=== PATIENT | male | born 1995 | race Caucasian/White ===

== ENCOUNTER 2017-05-13 20:31 | Observation (INO) | payer BC ==
[~2017-05-13] VITALS: Ht 177.8 cm; Wt 70.0 kg
[2017-05-13 11:30] VITALS: O2SAT 100
[2017-05-13 20:32] VITALS: BP 109/70; PULSE 68; RESP 15; TEMP 98.7; O2SAT 98
[2017-05-13] MEDS ORDERED: MORPHINE SULFATE 4 MG/ML INJ IV PUSH ONE (21:30)
[2017-05-13] MEDS ORDERED: ONDANSETRON HCL 4 MG/2 ML VIAL IV PUSH ONE (21:30)
[2017-05-13] MEDS ORDERED: fentaNYL CITRATE 250 MCG/5 ML AMP IV PUSH ONE (21:30)
[2017-05-13] MEDS ORDERED: SODIUM CHLORIDE 0.9% FLUSH 10 ML FLUSH IV FLUSH PRN (21:30)
[2017-05-13] MEDS ORDERED: MIDAZOLAM HCL 5 MG/5 ML VIAL IV PUSH ONE (21:30)
--- NOTE | 2017-05-13 21:35 | PD ---
HPI Chief Complaint: Injury Time Seen by Provider: 21:19 Travel History International Travel<30 days: No Contact w/Intl Traveler<30days: No Traveled to known affect area: No History of Present Illness HPI Patient comes in complaining of left shoulder dislocation after falling off a skateboard shortly prior to arrival. Patient states EMS put him in a sling that did not seem to help. Pain is worse with palpation and trying to move his left shoulder. Patient states he is has done this previously. Patient has pain is aching like in nature without radiation. Denies any numbness or tingling. Denies hitting his head or loss consciousness. Patient has abrasion on his left knee states his tetanus shot is up-to-date. PFSH Past Medical History Musculoskeletal: Yes (shoulder dislocation) Social History Tobacco Use: No Substance Use: No Allergies-Medications (Allergen,Severity, Reaction): Coded Allergies: No Known Allergies (Verified Allergy, Unknown, 05/13/17) Reported Meds & Prescriptions Reported Meds & Active Scripts Active Hydrocodone-Acetaminophen 7.5-325 mg Tab 1 Tab PO Q4H PRN Review of Systems Except as stated in HPI: all other systems reviewed are Neg Physical Exam Narrative GENERAL: Well-developed, well nourished, in no acute distress, and non-ill appearing. SKIN: Focused skin assessment warm and dry. HEAD: Atraumatic. Normocephalic. EYES: Pupils equal and round. EOMI. No scleral icterus. No injection or drainage. ENT: No nasal bleeding or discharge. Mucous membranes pink and moist. NECK: Trachea midline. Supple. No nuclear rigidity. CARDIOVASCULAR: Radial pulses 2+, intact, and equal bilaterally. Capillary refill less than 2 seconds. RESPIRATORY: No accessory muscle use. No respiratory distress. MUSCULOSKELETAL:Obvious deformity left shoulder. No clubbing. No cyanosis. No edema. Decreased range of motion left shoulder secondary to pain. Sensation intact and equal over bilateral deltoids. Shoulder: Pulses equal BL distal to injury. Capillary refill less than 2 seconds distal to injury and equal BL. FROM distal to injury and equal BL. Strength distal to injury equal BL. NV intact distal to injury equal BL. Flexion and extension of thumb equal BL. Equal strength and movement with abduction/adductions of BL fingers. Chief Pilot strength equal BL. NEUROLOGICAL: Awake and alert. No obvious cranial nerve deficits. Motor grossly within normal limits. Normal speech. PSYCHIATRIC: Appropriate mood and affect; insight and judgment normal. Data Data Last Documented VS Vital Signs Date Time Temp Pulse Resp B/P (MAP) Pulse Ox O2 Delivery O2 Flow Rate FiO2 05/13/17 23:40 Room Air 05/13/17 23:07 73 16 139/85 (103) 100 05/13/17 20:32 98.7 05/13/17 11:30 3.00 Orders Orders Iv Access Insert/Monitor (05/13/17 21:24) Ecg Monitoring (05/13/17 21:24) Oximetry (05/13/17 21:24) Sodium Chloride 0.9% Flush (Ns Flush) (05/13/17 21:30) Morphine Inj (Morphine Inj) (05/13/17 21:30) Ondansetron Inj (Zofran Inj) (05/13/17 21:30) Midazolam Inj (Versed Inj) (05/13/17 21:30) Fentanyl Inj (Fentanyl Inj) (05/13/17 21:30) Sodium Chlor 0.9% 1000 Ml Inj (Ns 1000 M (05/13/17 21:45) Shoulder, Limited(2vws) (05/13/17 ) Splint Or Brace Apply/Monitor (05/13/17 21:44) Sling And Swathe (05/13/17 ) Fentanyl Inj (Fentanyl Inj) (05/13/17 23:09) Midazolam Inj (Versed Inj) (05/13/17 23:10) Midazolam Inj (Versed Inj) (05/13/17 23:44) Midazolam Inj (Versed Inj) (05/14/17 00:00) Admit Order (Ed Use Only) (05/14/17 00:11) MDM Medical Decision Making Medical Screen Exam Complete: Yes Emergency Medical Condition: Yes Differential Diagnosis Fracture, dislocation, contusion, sprain, other Narrative Course Patient was seen and examined. Initial radiological studies were ordered. Reduction of left shoulder was attempted without success. Shoulder would go back into place to 2-3 times but then immediately pop right back out. She then with the assistance of Dr. Perera. Please see his documentation for further details. Patient was signed out to Dr. Perera pending orthopedic consult. Please see his documentation for further details. Diagnosis Primary Impression: Dislocation of left shoulder joint Qualified Codes: S43.005A - Unspecified dislocation of left shoulder joint, initial encounter Scripts Hydrocodone-Acetaminophen (Hydrocodone-Acetaminophen) 7.5-325 mg Tab 1 TAB PO Q4H Y for PAIN, #60 TAB 0 Refills Prov: Neftali Ryan 05/14/17 Condition: Stable Roberto Quan May 13, 2017 21:35
[2017-05-13] MEDS ORDERED: SODIUM CHLOR 0.9% 1000 ML INJ 1,000 ML IV ONE (21:45)
--- NOTE | 2017-05-13 22:01 | RADRPT ---
EXAM DATE/TIME: 05/13/2017 21:37 [facility] COMPARISON: No previous studies available for comparison. INDICATIONS : Left shoulder pain; fell skateboarding tonight. MEDICAL HISTORY : None. SURGICAL HISTORY : None. ENCOUNTER: Initial ACUITY: 1 day PAIN SCORE: 10/10 LOCATION: Left shoulder. FINDINGS: Glenohumeral joint is anteriorly dislocated. There is a suspected fractures through the mid glenoid. CONCLUSION: Dislocated glenohumeral joint and suspected glenoid fracture. Mike Talavera MD on May 13, 2017 at 21:59 Board Certified Radiologist. This report was verified electronically.
[2017-05-13 22:28] VITALS: BP 139/85; PULSE 84; RESP 15; O2SAT 100
[2017-05-13 23:07] VITALS: BP 139/85; PULSE 73; RESP 16; O2SAT 100
[2017-05-13] MEDS ORDERED: fentaNYL CITRATE 250 MCG/5 ML AMP ONE (23:09)
[2017-05-13] MEDS ORDERED: MIDAZOLAM HCL 5 MG/ML VIAL (1 ML) ONE ×2 (23:10→23:44)
[2017-05-14] MEDS ORDERED: MIDAZOLAM HCL 5 MG/ML VIAL (1 ML) IV PUSH ONE
--- NOTE | 2017-05-14 00:11 | PD ---
Physical Exam Narrative GENERAL: SKIN: Warm and dry. HEAD: Atraumatic. Normocephalic. EYES: Pupils equal and round. No scleral icterus. No injection or drainage. ENT: No nasal bleeding or discharge. Mucous membranes pink and moist. NECK: Trachea midline. No JVD. CARDIOVASCULAR: Regular rate and rhythm. RESPIRATORY: No accessory muscle use. Clear to auscultation. Breath sounds equal bilaterally. GASTROINTESTINAL: Abdomen soft, non-tender, nondistended. Hepatic and splenic margins not palpable. MUSCULOSKELETAL: Extremities without clubbing, cyanosis, or edema. LEFT ANT DISLOCATION, GOOD NVI, STRONG PULSES, NEUROLOGICAL: Awake and alert. No obvious cranial nerve deficits. Motor grossly within normal limits. Five out of 5 muscle strength in the arms and legs. Normal speech. PSYCHIATRIC: Appropriate mood and affect; insight and judgment normal. Data Data Last Documented VS Vital Signs Date Time Temp Pulse Resp B/P (MAP) Pulse Ox O2 Delivery O2 Flow Rate FiO2 05/13/17 23:40 Room Air 05/13/17 23:07 73 16 139/85 (103) 100 05/13/17 20:32 98.7 Orders Orders Iv Access Insert/Monitor (05/13/17 21:24) Ecg Monitoring (05/13/17 21:24) Oximetry (05/13/17 21:24) Sodium Chloride 0.9% Flush (Ns Flush) (05/13/17 21:30) Morphine Inj (Morphine Inj) (05/13/17 21:30) Ondansetron Inj (Zofran Inj) (05/13/17 21:30) Midazolam Inj (Versed Inj) (05/13/17 21:30) Fentanyl Inj (Fentanyl Inj) (05/13/17 21:30) Sodium Chlor 0.9% 1000 Ml Inj (Ns 1000 M (05/13/17 21:45) Shoulder, Limited(2vws) (05/13/17 ) Splint Or Brace Apply/Monitor (05/13/17 21:44) Sling And Swathe (05/13/17 ) Fentanyl Inj (Fentanyl Inj) (05/13/17 23:09) Midazolam Inj (Versed Inj) (05/13/17 23:10) Midazolam Inj (Versed Inj) (05/13/17 23:44) Midazolam Inj (Versed Inj) (05/14/17 00:00) [facility] Medical Record Reviewed: Yes Supervised Visit with NELSON: No Narrative Course DESPITE GOOD SEDATION UNABLE TO REDUCE LEFT SHOULDER. Procedures Procedure Narrative The patient was placed on a cardiac rehab nurse and pulse oximetry. An ambu bag and suction was immediately available at bedside. The patient was monitored by the nurse. Oxygen saturation, heart rate and blood pressure were monitored. Procedural sedation was acheived using [FENTANYL 50MCG, VERSED 10MG TOTAL]. The patient was observed until awake and alert. Procedural Sedation time in attendance was [45] minutes. Physician Communication Physician Communication UNSUCCESSFUL ATTEMPTS INCLUDING WITH WORSTED WINDER, ALL 3 TIMES FELT IT REDUCED BUT SOON TENSION WAS RELEASED IT WOULD DISLOCATE AGAIN. DR DEVLIN CONSULTED AND WILL REDUCE IN AM, IN OR Diagnosis Primary Impression: Dislocation of left shoulder joint Qualified Codes: S43.005A - Unspecified dislocation of left shoulder joint, initial encounter Admitting Information Admitting Physician Requests: Observation Pavan Perera MD May 14, 2017 00:11
[2017-05-14] MEDS ORDERED: SODIUM CHLOR 0.9% 1000 ML INJ 1,000 ML IV SCH (00:15)
[2017-05-14 00:45] VITALS: BP 111/59; PULSE 84; RESP 14; O2SAT 100
[2017-05-14 01:15] VITALS: BP 136/79; PULSE 88; RESP 17; TEMP 97.2; O2SAT 98
[2017-05-14 04:00] VITALS: BP 134/80; PULSE 90; RESP 17; TEMP 97.5; O2SAT 97
[2017-05-14] MEDS ORDERED: LACTATED RINGER'S 1000 ML IV PRN (04:30)
[2017-05-14] MEDS ORDERED: METOPROLOL TARTRATE 25 MG TAB PO PRN (04:30)
[2017-05-14] MEDS ORDERED: INSULIN HUMAN REGULAR 1,000 UNITS/10 ML VIAL SQ PRN (04:30)
[2017-05-14] MEDS ORDERED: SODIUM CHLORID 0.9% 500 ML IV PRN (04:30)
[2017-05-14] MEDS ORDERED: POVIDONE IODINE 5% (ANTISEPSIS KIT) 4 APPLICATIONS EACH NARE PRN (04:30)
[2017-05-14] MEDS ORDERED: CHLORHEXIDINE GLUCONATE 2 % 1 PACK (2 CLOTHS) TOPICAL PRN (04:30)
[2017-05-14] MEDS ORDERED: HYDR-3580 PO (06:24)
[2017-05-14] MEDS ORDERED: ACETAMINOPHEN 1000 MG/100 ML 0 ML IV ONE (06:58)
[2017-05-14] MEDS ORDERED: SUGAMMADEX SODIUM 200 MG/2 ML VIAL IV PUSH ONE ×2 (07:08)
[2017-05-14] MEDS ORDERED: FAMOTIDINE 20 MG/2 ML VIAL ONE (07:18)
[2017-05-14] MEDS ORDERED: MIDAZOLAM HCL 2 MG/2 ML VIAL ONE (07:18)
[2017-05-14 07:22] LABS: AUTOMATED NEUTROPHIL # 6.6 TH/MM3 (1.8-7.7); BASOPHIL % 0.2 % (0.0-2.0); EOSINOPHIL # 0.1 TH/MM3 (0-0.4); EOSINOPHIL % 0.5 % (0.0-4.0); HEMATOCRIT 41.5 % (39.0-51.0); HEMO FLAGS DIFF FINAL; LYMPH % 28.7 % (9.0-44.0); LYMPHOCYTE # 3.1 TH/MM3 (1.0-4.8); MEAN CELL VOLUME 89.1 FL (80.0-100.0); MEAN CORPUSCULAR HEMOGLOBIN 29.8 PG (27.0-34.0); MEAN CORPUSCULAR HGB CONC 33.4 % (32.0-36.0); MONO % 10.5 % (0.0-8.0); NEUT % 60.1 % (16.0-70.0); PLATELET COUNT 199 TH/MM3 (150-450); RED BLOOD COUNT 4.66 MIL/MM3 (4.50-5.90); WHITE BLOOD COUNT 10.9 TH/MM3 (4.0-11.0)
[2017-05-14 07:40] LABS: APTT (PATIENT) 26.3 SEC (24.3-30.1); PROTHROMBIN TIME - PATIENT 10.8 SEC (9.8-11.6)
[2017-05-14 07:45] LABS: BICARBONATE 23.8 MEQ/L (21.0-32.0); POTASSIUM 3.6 MEQ/L (3.5-5.1)
--- NOTE | 2017-05-14 08:14 | PD.OP ---
cc: Serg Lai MD Operative Report Date of Surgery: May 14, 2017 Preoperative Diagnosis: Left shoulder dislocation Postoperative Diagnosis: Procedure: Closed reduction left shoulder with manipulation under anesthesia Anesthesia: Gen. Surgeon: Serg Lai Dry Cure Worker(s): Valentin Presley PA-C Operation and Findings: Jamarcus is a 21-year-old male who had a fall resulting a left shoulder dislocation yesterday. He had attempted closed reduction in the emergency room. Reduction attempts were unsuccessful. Informed consent was obtained preoperatively and Op Site was marked. He is brought to operating. His given IV sedation and general anesthesia. Timeout procedure was performed. Procedure began with manipulation of the elbow. Traction was applied. Counter traction was also applied. The shoulder was gently manipulated. The shoulder reduced well. Fluoroscopy was used to confirm anatomic reduction of the shoulder. The shoulder was placed through gentle range of motion and found to be relatively stable. Patient was placed into a sling and swath. He was awakened and transferred to recovery room in stable condition. Serg Lai MD May 14, 2017 08:14
[2017-05-14] MEDS ORDERED: SODIUM CHLORIDE 0.9% FLUSH 10 ML FLUSH IV FLUSH PRN (08:15)
[2017-05-14] MEDS ORDERED: ACETAMINOPHEN/HYDROcodone 325 MG/7.5 MG TAB PO PRN (08:15)
[2017-05-14 08:29] VITALS: TEMP 97.8
[2017-05-14] MEDS ORDERED: DO NOT ADM ANY ANTICOAGULANT DRUGS PRN (08:29)
[2017-05-14 08:59] VITALS: BP 112/59; PULSE 88; RESP 14; O2SAT 96
[2017-05-14] MEDS ORDERED: SODIUM CHLORIDE 0.9% FLUSH 10 ML FLUSH IV FLUSH SCH (09:00)
--- NOTE | 2017-05-14 09:01 | MB ---
cc: YAYAKURTIS DATE OF CONSULTATION: 05/14/2017 REASON FOR CONSULTATION Left shoulder dislocation. HISTORY OF PRESENT ILLNESS Jamaal is a 21-year-old male who is a college student. He was riding a skateboard. He fell and landed on his outstretched left arm. He had immediate left shoulder pain. He presented to the emergency room where x-rays revealed a left shoulder dislocation. He denies hitting his head. He had no loss of consciousness. The shoulder pain is worse with movement. He states that this is the fourth time he has dislocated his shoulder. He has previously had surgical repair of his labrum arthroscopically. He was doing well until this fall. PAST MEDICAL HISTORY ILLNESSES None. ALLERGIES None. MEDICATIONS None. SURGERIES Left shoulder arthroscopy. SOCIAL HISTORY The patient is a college student. He denies alcohol, tobacco or drug use. FAMILY HISTORY Noncontributory. REVIEW OF SYSTEMS The patient denies headache, visual changes, neck pain, chest pain, shortness of breath, abdominal pain, fever, chills, nausea, vomiting, recent weight loss, or numbness or tingling of extremities. He complains of left shoulder pain. The pain is worse with movement. PHYSICAL EXAMINATION GENERAL: The patient is a thin 21-year-old male in no acute distress. He is awake and alert. He is alert and oriented x3. He appears well-developed, well-nourished. VITAL SIGNS: Temperature 97.5, pulse 90, respirations 17, blood pressure 134/80. O2 sat is 97% on three liters nasal cannula. HEENT: Head is normocephalic. Pupils are equal. NECK: Soft, nontender. Trachea is midline. ABDOMEN: Soft, nontender, nondistended. EXTREMITIES: Examination of left shoulder reveals obvious deformity. The left humerus appears to be anterior to the glenoid. He has pain with any shoulder motion. He has minimal pain with elbow, wrist or finger motion. Sensation is intact in all fingers. Skin is intact. Radial pulse is palpable. Examination of right arm reveals no pain with shoulder, elbow or wrist motion. He has intact sensation in all fingers. He has good capillary refill in all fingers. Skin is intact. Examination of lower extremities reveals no pain with hip, knee or ankle motion. Skin is intact. Dorsalis pedis pulses are palpable. X-RAYS X-rays of the left shoulder were reviewed. The patient has post-surgical changes from previous labral repair. He also has an anterior dislocation of his shoulder. IMPRESSION Dislocated left shoulder. PLAN The treatment options were discussed with the patient. At this point I would recommend attempt at closed reduction left shoulder. If the shoulder does not reduce he may need open reduction and possible soft tissue repair. The risks of surgery include bleeding, infection, injuries to arteries, nerves and blood vessels, recurrent dislocation, fracture of shoulder as well as medical complications associated with anesthesia. All questions were answered. I will plan on surgery today. A mid-level provider in my office, nurse practitioner or PA, may see this patient on a follow-up basis and continue to implement the objective of this plan including: Starting or adjusting medications, injections of muscle, tendon, bursa or joints, cast application, orthotic or brace application, physical therapy, further radiographic studies including x-ray, MRI, CT, ultrasounds or bone scan, vascular studies, neurologic studies, or other specialist consultations, and proceeding with surgical management as appropriate. MD MAYRA Randle/ZAINAB /8:16 AM /8:38 AM
[2017-05-14] MEDS ORDERED: MIDAZOLAM HCL 2 MG/2 ML VIAL IV ONE (12:00)
[2017-05-14] MEDS ORDERED: PHENYLEPH/NS 1000 MCG/10 ML SYR IV ONE (12:00)
[2017-05-14] MEDS ORDERED: ONDANSETRON HCL 4 MG/2 ML VIAL IV PUSH ONE (12:00)
[2017-05-14] MEDS ORDERED: ePHEDrine/NS 25 MG/5 ML SYR IV ONE (12:00)
[2017-05-14] MEDS ORDERED: LIDOCAINE HCL 1% PF 5 ML AMPULE OTHER ONE (12:00)
[2017-05-14] MEDS ORDERED: DEXAMETHASONE SOD PHOS 4 MG/ML VIAL IV ONE (12:00)
[2017-05-14] MEDS ORDERED: ROCURONIUM INJ 50 MG/5 ML SYRINGE IV PUSH ONE (12:00)
[2017-05-14] MEDS ORDERED: PROPOFOL 200 MG/20 ML AMP IV ONE (12:00)
--- NOTE | 2017-05-14 13:36 | PD.ORT.PN ---
Subjective Subjective Remarks POD 0 s/p closed reduction left shoulder Objective Vitals Vital Signs Date Time Temp Pulse Resp B/P (MAP) Pulse Ox O2 Delivery O2 Flow Rate FiO2 05/14/17 08:59 88 14 112/59 (76) 96 Room Air 05/14/17 08:44 99 14 104/56 (72) 99 Nasal Cannula 2 05/14/17 08:29 97.8 111 16 102/64 (77) 100 Nasal Cannula 2 05/14/17 04:00 97.5 90 17 134/80 (98) 97 05/14/17 01:15 97.2 88 17 136/79 (98) 98 05/14/17 01:00 05/14/17 00:45 84 14 111/59 (76) 100 Nasal Cannula 3.00 05/13/17 23:40 Room Air 05/13/17 23:07 73 16 139/85 (103) 100 Room Air 05/13/17 22:28 84 15 139/85 (103) 100 Room Air 05/13/17 20:32 98.7 68 15 109/70 (83) 98 Room Air I/O 05/13/17 05/13/17 05/13/17 05/14/17 05/14/17 05/14/17 07:00 15:00 23:00 07:00 15:00 23:00 Intake Total 0 ml Balance 0 ml Intake Oral 0 ml # Voids 1 # Bowel Movements 0 Result Diagram: 05/14/17 0643 05/14/17 0643 Other Results Laboratory Tests Test 05/14/17 06:43 Prothromb Time International Ratio 1.0 RATIO Prothrombin Time 10.8 SEC (9.8-11.6) Objective Remarks LUE: +sling/swathe. +cap refill Assessment & Plan Assessment and Plan 1) Left Shoulder dislocation s/p closed reduction - POD 0 -NWB -sling/swathe at all times -ortho clear for DC home -f/u with Joseph or MELLISSA in 10-14 days Neftali Ryan May 14, 2017 13:36
--- NOTE | 2017-05-14 13:39 | HHI.DS ---
Discharge Summary Admission Date May 14, 2017 at 00:12 Discharge Date: May 14, 2017 Admitting Diagnosis Left Shoulder Dislocation Diagnosis: (1) Dislocation of left shoulder joint Diagnosis: Principal ICD Codes: S43.005A - Unspecified dislocation of left shoulder joint, initial encounter Status: Acute Procedures Closed Reduction Left Shoulder CBC/BMP: 05/14/17 0643 05/14/17 0643 Significant Findings Laboratory Tests Test 05/14/17 06:43 Monocytes (%) (Auto) 10.5 % (0.0-8.0) Monocytes # (Auto) 1.2 TH/MM3 (0-0.9) Calcium Level 8.1 MG/DL (8.5-10.1) Chloride Level 109 MEQ/L (98-107) PE at Discharge LUE: +sling/swathe. +cap refill Hospital Course Patient admitted from ED on 05/13/17 for recurrent left shoulder dislocation. Taken to OR for closed reduction. Performed successfully. Stable post op. Clear for discharge home. will remain NWB and maintain sling/swathe at all times. follow up with Joseph or MELLISSA in 2 weeks Pt Condition on Discharge: Good Discharge Disposition: Discharge Home Discharge Instructions Diet Instructions: As Tolerated, No Restrictions Activities You Can Perform: See Additionl Instruction Additional Activity Instruc.: Sling and swath at all times. Remove only for shower Follow up Referrals: Orthopedics - 2 Weeks @ [facility] with Serg Ruiz MD New Medications: Hydrocodone-Acetaminophen (Hydrocodone-Acetaminophen) 7.5-325 mg Tab 1 TAB PO Q4H PRN for PAIN, #60 TAB 0 Refills Neftali Ryan May 14, 2017 13:39
--- NOTE | 2017-05-14 15:29 | RADRPT ---
EXAM DATE/TIME: 05/14/2017 08:04 [facility] COMPARISON: SHOULDER LEFT LTD (2VWS), May 13, 2017, 21:37. INDICATIONS : Left shoulder closed reduction internal fixation. MEDICAL HISTORY : None. SURGICAL HISTORY : None. ENCOUNTER: Initial ACUITY: 1 day PAIN SCORE: Non-responsive. LOCATION: Left shoulder FINDINGS: 2 fluoroscopic old images from left shoulder reduction. There is now anatomic alignment of the glenoh umeral joint. No definitive acute bony fracture. Lucency demonstrated in the glenoid on the radiograp hs is not demonstrated on this exam. CONCLUSION: 1. Anatomic alignment status post left shoulder reduction Curt Zhang MD on May 14, 2017 at 15:26 Board Certified Radiologist. This report was verified electronically.
== END 2017-05-14 14:10 | disposition home or self-care (01) ==
LOC: NEPE 20:31 → NEDA 05-14 00:12 → N06A 05-14 01:11
PROVIDERS: ADMIT Orthopaedic Surgery; ATTEND Orthopaedic Surgery
DX: M24.412 Recurrent dislocation, left shoulder (principal); V00.131A Fall from skateboard, initial encounter; Y93.51 Activity, roller skating (inline) and skateboarding
CPT/HCPCS: 01620; 23650; 23655; 73030; 76000; 80048; 85025; 85610; 85730; 96361; 96374; 96375; 99152; 99153; 99285; G0378; J1100; J2250; J2270; J2370; J2405; J3010; J7030; J0131

== ENCOUNTER 2017-07-22 22:34 | Emergency (ER) | payer BC ==
[~2017-07-22] VITALS: Ht 180.3 cm; Wt 72.0 kg
[~2017-07-22 22:34] MED LIST: HYDR-3580 PO
[2017-07-22 22:35] VITALS: BP 122/67; PULSE 67; RESP 18; TEMP 98.8; O2SAT 99
[2017-07-22 23:01] VITALS: BP 123/65; PULSE 69; RESP 16; O2SAT 99
[2017-07-22 23:02] VITALS: BP 123/65; PULSE 69; RESP 16; TEMP 98.5; O2SAT 99
--- NOTE | 2017-07-22 23:10 | PD ---
HPI Chief Complaint: Injury Time Seen by Provider: 23:02 Travel History International Travel<30 days: No Contact w/Intl Traveler<30days: No Traveled to known affect area: No History of Present Illness HPI 21yo M with PMH of recurrent left shoulder dislocation presents to the ED with c /o left shoulder dislocation. Pt said he slip and fell and dislocated his left shoulder again. Denies any other injuries. Denies any fever, chest pain, sob, n/v, abdominal pain, focal weakness or numbness. Pt was seen on 05/13/17 for left shoulder dislocation and had to get his shoulder reduced in the OR after unsuccessful reduction using procedural sedation. PFSH Past Medical History Cardiovascular Problems: No Genitourinary: No Musculoskeletal: Yes (shoulder dislocation) Neurologic: No Psychiatric: No Reproductive: No Respiratory: No Social History Tobacco Use: No Substance Use: No Allergies-Medications (Allergen,Severity, Reaction): Coded Allergies: No Known Allergies (Verified Allergy, Unknown, 05/13/17) Reported Meds & Prescriptions Reported Meds & Active Scripts Active Hydrocodone-Acetaminophen 7.5-325 mg Tab 1 Tab PO Q4H PRN Review of Systems Except as stated in HPI: all other systems reviewed are Neg Physical Exam Narrative GENERAL: 21yo M in mild distress. SKIN: Focused skin assessment warm/dry. HEAD: Atraumatic. Normocephalic. EYES: Pupils equal and round. No scleral icterus. No injection or drainage. CARDIOVASCULAR: Regular rate and rhythm. No murmur appreciated. RESPIRATORY: No accessory muscle use. Clear to auscultation. Breath sounds equal bilaterally. GASTROINTESTINAL: Abdomen soft, non-tender, nondistended. MUSCULOSKELETAL: Left shoulder: Glenoid is anterior inferior to glenohumeral joint. Deltoid sensation intact. Distal pulses intact. NEUROLOGICAL: Awake and alert. No obvious cranial nerve deficits. Motor grossly within normal limits. Normal speech. PSYCHIATRIC: Appropriate mood and affect; insight and judgment normal. Data Data Last Documented VS Vital Signs Date Time Temp Pulse Resp B/P (MAP) Pulse Ox O2 Delivery O2 Flow Rate FiO2 07/22/17 23:45 99 Nasal Cannula 3.00 07/22/17 23:02 98.5 69 16 123/65 (84) Orders Orders Morphine Inj (Morphine Inj) (07/22/17 23:15) Propofol 500 Mg/50 Ml Inj (Diprivan 500 (07/22/17 23:15) Shoulder, Limited(2vws) (07/22/17 23:26) Shoulder, Limited(2vws) (07/23/17 ) Ct Shoulder W/O Contrast (07/23/17 ) MDM Medical Decision Making Medical Screen Exam Complete: Yes Emergency Medical Condition: Yes Differential Diagnosis Recurrent left shoulder dislocation Narrative Course 21yo M here with recurrent left shoulder dislocation after fall. No other complaints. Neurovascular intact. Pt's left shoulder dislocated on clinical exam so reduced with procedural sedation. Xray left shoulder showed anterior inferior dislocation of the humerus with respect to the glenoid. A comminuted glenoid fracture is suspected. Post reduction xray showed interval reduction of shoulder dislocation. Glenoid fracture was suspected on initial images, obscured on current study. CT exam of shoulder is suggested. Pt is fully awake and I discussed with him. Agree to CT shoulder. Procedures Procedure Narrative After the risks and benefits were discussed the following procedure was performed: MODERATE SEDATION: The patient was placed on a cardiac technologist and pulse oximetry. An ambu bag and suction was immediately available at bedside. The patient was monitored by the nurse. Oxygen saturation , heart rate and blood pressure were monitored. Procedural sedation was acheived using 200mcg of propofol. The patient was observed until awake and alert. Procedural Sedation time in attendance was 30 minutes. Diagnosis Primary Impression: Shoulder dislocation Qualified Codes: S43.005A - Unspecified dislocation of left shoulder joint, initial encounter Referrals: Elias Hemphill MD call for appointment Patient Instructions: General Instructions Departure Forms: Tests/Procedures Med/Other Pt SpecificInfo: No Change to Meds Adele Ravi DO Jul 22, 2017 23:10
[2017-07-22] MEDS ORDERED: PROPOFOL 500 MG/50 ML BTL IV ONE (23:15)
[2017-07-22] MEDS ORDERED: MORPHINE SULFATE 4 MG/ML INJ IV PUSH ONE (23:15)
[2017-07-22 23:45] VITALS: O2SAT 100; O2SAT 99
--- NOTE | 2017-07-22 23:45 | RADRPT ---
EXAM DATE/TIME: 07/22/2017 23:24 [facility] COMPARISON: No previous studies available for comparison. INDICATIONS : Patient fell onto left shoulder MEDICAL HISTORY : None. History of Dislocation of left shoulder SURGICAL HISTORY : None. ENCOUNTER: Initial ACUITY: 1 day PAIN SCORE: 6/10 LOCATION: Left Shoulder FINDINGS: There is anterior inferior dislocation of the humerus with respect to the glenoid. A comminuted gleno id fracture is suspected. CONCLUSION: Shoulder dislocation with possible glenoid fracture. Rolan Griffin MD on July 22, 2017 at 23:43 Board Certified Radiologist. This report was verified electronically.
--- NOTE | 2017-07-23 00:21 | RADRPT ---
EXAM DATE/TIME: 07/23/2017 00:08 [facility] COMPARISON: SHOULDER LEFT LTD (2VWS), July 22, 2017, 23:24. INDICATIONS : Post Reduction of Left shoulder MEDICAL HISTORY : None. SURGICAL HISTORY : None. ENCOUNTER: Subsequent ACUITY: 1 day PAIN SCORE: 7/10 LOCATION: Left Shoulder FINDINGS: Interval reduction of the shoulder dislocation. No well defined fracture fragments. There were findin gs suspect for a glenoid fracture on the previous study which is obscured on the current study. CONCLUSION: Interval reduction of shoulder dislocation. Glenoid fracture was suspected on the initial images, obs cured on the current study. CT examination of the shoulder is suggested. Rolan Griffin MD on July 23, 2017 at 0:19 Board Certified Radiologist. This report was verified electronically.
--- NOTE | 2017-07-23 00:59 | PD ---
Physical Exam Date Seen by Provider: Jul 23, 2017 Time Seen by Provider: 00:53 Narrative Musculoskeletal: Patient has a anterior dislocation of left shoulder. Patient' s neurovascular intact. Data Data Last Documented VS Vital Signs Date Time Temp Pulse Resp B/P (MAP) Pulse Ox O2 Delivery O2 Flow Rate FiO2 07/22/17 23:45 99 Nasal Cannula 3.00 07/22/17 23:02 98.5 69 16 123/65 (84) Orders Orders Morphine Inj (Morphine Inj) (07/22/17 23:15) Propofol 500 Mg/50 Ml Inj (Diprivan 500 (07/22/17 23:15) Shoulder, Limited(2vws) (07/22/17 23:26) Shoulder, Limited(2vws) (07/23/17 ) Ct Shoulder W/O Contrast (07/23/17 ) MDM Medical Record Reviewed: Yes Supervised Visit with NELSON: Yes Interpretation(s) Last 24 hours Impressions Upper Extremity CT 07/23/17 0000 Signed Impressions: Service Date/Time: Sunday, July 23, 2017 02:05 - CONCLUSION: The lucency noted on the recent radiograph of the glenoid is related to previous hardware placement which has since been removed. There is a well-corticated ossific density adjacent to the glenoid which appears nonacute. There is also a Hill-Sachs deformity of the humeral head, nonacute. Rolan Griffin MD Shoulder X-Ray 07/23/17 0000 Signed Impressions: Service Date/Time: Sunday, July 23, 2017 00:08 - CONCLUSION: Interval reduction of shoulder dislocation. Glenoid fracture was suspected on the initial images, obscured on the current study. CT examination of the shoulder is suggested. Rolan Griffin MD Shoulder X-Ray 07/22/17 [id number] Signed Impressions: Service Date/Time: July 23:24 - CONCLUSION: Shoulder dislocation with possible glenoid fracture. Rolan Griffin MD Last 24 hours Impressions Shoulder X-Ray 07/23/17 0000 Signed Impressions: Service Date/Time: Sunday, July 23, 2017 00:08 - CONCLUSION: Interval reduction of shoulder dislocation. Glenoid fracture was suspected on the initial images, obscured on the current study. CT examination of the shoulder is suggested. Rolan Griffin MD Shoulder X-Ray 07/22/17 [id number] Signed Impressions: Service Date/Time: July 23:24 - CONCLUSION: Shoulder dislocation with possible glenoid fracture. Rolan Griffin MD Differential Diagnosis MDM: High Differential diagnoses: Fracture, sprain, strain, dislocation, contusion, neurovascular injury Narrative Course Patient's left shoulder has been reduced using procedural sedation. X-ray shows a possible glenoid fracture. He'll go for CT scan. CT scan rules out acute fracture. He has evidence of prior hardware removal and a old Hill-Sachs fracture. No new fractures. This is left shoulder dislocation-reduced Procedures Procedure Narrative Closed reduction left anterior shoulder dislocation: Using procedural sedation with propofol the patient is sedated. Using traction countertraction as well as external rotation and supination with anterior shoulder extension. Positive reduction. Patient is placed in a sling and swath. Patient is neurovascularly intact post reduction. He has intact median/ulnar/radial nerves. Diagnosis Primary Impression: Shoulder dislocation Qualified Codes: S43.005A - Unspecified dislocation of left shoulder joint, initial encounter Patient Instructions: General Instructions Additional Instruction: Rest. Sling and swath. Ice packs. Diclofenac. Follow-up with your orthopedist within the next 3-7 days. Return to the ER for emergencies. Med/Other Pt SpecificInfo: Prescription(s) given Scripts Diclofenac Sodium DR (Diclofenac Sodium DR) 75 Mg Tabdr 75 MG PO BID, #20 TAB 0 Refills Prov: Adele Ravi DO 07/23/17 Disposition: 01 DISCHARGE HOME Condition: Stable José Miguel Chisholm Jul 23, 2017 00:59
--- NOTE | 2017-07-23 02:38 | RADRPT ---
EXAM DATE/TIME: 07/23/2017 02:05 [facility] COMPARISON: SHOULDER LEFT LTD (2VWS), July 23, 2017, 0:08. SHOULDER LEFT LTD (2VWS), July 22, 2017, 23:2 4. SHOULDER LEFT LTD (2VWS), May 14, 2017, 8:04. INDICATIONS : Abnormal xray, fall . Evaluate for possible glenoid fracture. RADIATION DOSE: 40.20 CTDIvol (mGy) MEDICAL HISTORY : None SURGICAL HISTORY : Labrum and bicep repair. ENCOUNTER: Initial ACUITY: 1 day PAIN SCALE: 0/10 LOCATION: Left shoulder TECHNIQUE: Volumetric scanning of the shoulder was performed. Using automated exposure control and adjustment o f the mA and/or kV according to patient size, radiation dose was kept as low as reasonably achievable to obtain optimal diagnostic quality images. DICOM format image data is available electronically f or review and comparison. FINDINGS: BONES: There are see the glenoid corresponding to the radiographic findings. The appearance is consistent wi th remote postsurgical changes with hardware are removed at this level as well as the left proximal h umerus. There is a remote Hill-Sachs deformity the humeral head, and a small ossific fragment is seen off the glenoid measuring 5.4 mm. This is well-corticated in appearance and felt to be non-acute. JOINTS: No evidence of joint narrowing or effusion. SOFT TISSUES: Muscles, tendons, and neurovascular structures are grossly unremarkable. The integrity of the rotato r cuff tendons cannot be reliably evaluated on CT without intra-articular contrast. No evidence of m ass, organized fluid collection, or foreign body. CONCLUSION: The lucency noted on the recent radiograph of the glenoid is related to previous hardware placement w hich has since been removed. There is a well-corticated ossific density adjacent to the glenoid which appears nonacute. There is also a Hill-Sachs deformity of the humeral head, nonacute. Rolan Griffin MD on July 23, 2017 at 2:34 Board Certified Radiologist. This report was verified electronically.
[2017-07-23] MEDS ORDERED: DICL75TA PO (02:49)
[2017-07-23 03:17] VITALS: BP 116/66
== END 2017-07-23 03:20 | disposition home or self-care (01) ==
LOC: NEPD 22:34
DX: M24.412 Recurrent dislocation, left shoulder (principal); W01.0XXA Fall on same level from slipping, tripping and stumbling without subsequent striking against object, initial encounter
CPT/HCPCS: 23650; 73030; 73200; 96374; 99152; 99285; J2270; 29240